=== PATIENT | male | born 1960 | race Hispanic/Latino ===

== ENCOUNTER 2016-06-28 09:16 | Day surgery (SDC) | payer MEDICAID ==
[~2016-06-28 09:16] MED LIST: FLAGYL 500 MG/100 ML 100 ML IV SCH
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
[2016-06-28 10:25] LABS: Basophils % (Auto) 0.4 % (0.0-1.8); Eosinophils % (Auto) 0.3 % (0.0-4.3); Hematocrit 42.1 % (35.5-45.6); Hemoglobin 13.5 gm/dl (11.8-15.2); Mean Corpuscular HGB Conc 32 % (32-34); Mean Corpuscular Hemoglobin 26 pg (28-32); Mean Corpuscular Volume 82 fl (84-94); Platelet Count 137 K/mm3 (140-440); Red Blood Count 5.11 M/mm3 (3.65-5.03); Red Cell Distribution Width 16.9 % (13.2-15.2); White Blood Count 19.4 K/mm3 (4.5-11.0)
--- NOTE | 2016-06-28 10:26 | Anesthesia Day of Surgery ---
Anesthesia Day of Surgery - Day of Surgery Patient Examined: Yes Patient H&P Reviewed: Yes Patient is NPO: Yes
[2016-06-28] MEDS ORDERED: DILAUDID IV ONE ×2 (10:28→12:10)
[2016-06-28 10:38] LABS: Anion Gap 21 mmol/L; BUN/Creatinine Ratio 16.36; Blood Urea Nitrogen 18 mg/dL (9-20); Calcium 8.7 mg/dL (8.4-10.2); Carbon Dioxide 22 mmol/L (22-30); Chloride 100.2 mmol/L (98-107); Glucose 130 mg/dL (75-100); Potassium 4.2 mmol/L (3.6-5.0); Sodium 139 mmol/L (137-145)
[2016-06-28] MEDS ORDERED: VERSED IV NR ×2 (11:00→14:00)
[2016-06-28] MEDS ORDERED: LACTATED RINGERS 1,000 ML IV SCH (11:00)
[2016-06-28] MEDS ORDERED: PEPCID PO NR (11:00)
[2016-06-28] MEDS ORDERED: DILAUDID ONE (14:04)
[2016-06-28] MEDS ORDERED: DIPRIVAN 10 MG/ML IV ONE (14:04)
[2016-06-28] MEDS ORDERED: XYLOCAINE MPF 2% ONE (14:09)
[2016-06-28] MEDS ORDERED: TORADOL ONE (15:13)
[2016-06-28] MEDS ORDERED: ZOFRAN ONE (15:13)
--- NOTE | 2016-06-28 15:14 | Short Stay Summary ---
Short Stay Documentation Date of service: 06/28/16 - History H&P: obtained from office - Allergies and Medications Current Medications: Allergies penicillin Allergy (Severe, Verified 03/03/15 14:06) Rash BEE STINGS Adverse Reaction (Severe, Uncoded 03/03/15 14:11) Swelling Home Medications Medication Instructions Recorded Confirmed Last Taken Type Aspirin [Aspirin BABY CHEW TAB] 81 mg PO QDAY 05/19/15 06/28/16 06/21/16 History Famotidine [Pepcid] 30 mg PO DAILY 05/19/15 06/23/16 06/27/16 History Fluticasone [Flonase] 1 spray NS QDAY 05/19/15 06/23/16 06/27/16 History Mirtazapine [Remeron] 15 mg PO QHS 05/19/15 06/23/16 06/27/16 History Oxycodone HCl/Acetaminophen 1 each PO Q6HR PRN 05/19/15 06/23/16 06/27/16 History [Percocet 2.5/325 mg] Pantoprazole [Protonix] 40 mg PO QDAY 05/19/15 06/23/16 06/27/16 History Polyethylene Glycol 3350 [Miralax 17 gm PO BID 05/19/15 06/23/16 06/27/16 History 3350] Sennosides [Senna Lax] 4 tab PO QHS 05/19/15 06/23/16 06/27/16 History Venlafaxine Xr [Effexor Xr] 75 mg PO QDAY 05/19/15 06/23/16 06/27/16 History Mirabegron [Myrbetriq] 50 mg PO QDAY 11/02/15 06/23/16 06/27/16 History Fesoterodine Fumarate [Toviaz] 8 mg PO QDAY 11/03/15 06/23/16 06/27/16 History Mag Hydrox/Al Hydrox/Simeth [Rulox 30 cc PO PRN PRN 12/17/15 06/23/16 04/11/16 21:00 History Suspension] Cetirizine HCl [ZyrTEC] 10 mg PO QHS 06/23/16 06/23/16 06/27/16 History Ferrous Sulfate [Feosol] 325 mg PO QDAY 12/06/23/16 06/27/16 History Flavoxate HCl [flavoxATE] 100 mg PO PRN PRN 06/23/16 06/23/16 Unknown History Linaclotide [Linzess] 145 mcg PO QDAY 06/23/16 06/23/16 06/27/16 History Solifenacin Succinate [Vesicare] 10 mg PO QDAY 06/23/16 06/23/16 06/27/16 History Active Medications Famotidine (Pepcid) 20 mg PO PREOP NR Stop: 06/28/16 23:00 Last Admin: 06/28/16 10:38 Dose: 20 mg Metronidazole (Flagyl 500 Mg/100 Ml) 100 mls @ 100 mls/hr IV PREOP BERT Stop: 06/28/16 23:59 Lactated Ringer's (Lactated Ringers) 1,000 mls @ 75 mls/hr IV DIRECT BERT Last Admin: 06/28/16 10:38 Dose: 75 mls/hr Midazolam HCl (Versed) 2 mg IV PREOP NR Stop: 06/28/16 23:59 Last Admin: 06/28/16 10:44 Dose: 2 mg Midazolam HCl (Versed) 1 mg IV PREOP NR Stop: 06/28/16 23:59 Last Admin: 06/28/16 13:58 Dose: 1 mg - Brief post op/procedure progress note Date of procedure: 06/28/16 Pre-op diagnosis: neurogenic bladder, urethral stricture Post-op diagnosis: same Procedure: spt exchange, cystogram, urethroscopy Anesthesia: GETA Surgeon: BE WEAVER Estimated blood loss: none Pathology: none Condition: stable - Hospital course Hospital course: jacobo williamson on chart - Disposition Condition at discharge: Stable
[2016-06-28 16:42] VITALS: BP 118/72
[2016-06-28] MEDS ORDERED: NORCO 5/325 PO ONE (16:44)
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
--- NOTE | 2016-06-28 17:28 | Post Anesthesia Evaluation ---
- Post Anesthesia Evaluation Patient Participated: Yes Airway Patent: Yes Stable Respiratory Function: Yes Nausea/Vomiting: No Temp > 96.8F: Yes Pain Manageable: Yes Adequeate Hydration: Yes Anesthesia Complications: No Block Receding Appropriately: Not Applicable Patient on Ventilator: No
--- NOTE | 2016-06-29 08:42 | Fluoroscopy Report ---
Static cystogram. History: Neurogenic bladder. Findings: The bladder appears contracted which is consistent with the clinical diagnosis. Exchange of a suprapubic catheter was performed with this procedure. No evidence of vesicoureteral reflux is seen on images obtained.
== END 2016-06-28 17:35 ==
LOC: OR 09:16
PROVIDERS: ATTEND Urology
DX: N31.2 Flaccid neuropathic bladder, not elsewhere classified (principal); N35.9 Urethral stricture, unspecified; F32.9 Major depressive disorder, single episode, unspecified; F41.9 Anxiety disorder, unspecified; K21.9 Gastro-esophageal reflux disease without esophagitis; B19.20 Unspecified viral hepatitis C without hepatic coma; G82.50 Quadriplegia, unspecified; S14.159S Other incomplete lesion at unspecified level of cervical spinal cord, sequela; V89.2XXS Person injured in unspecified motor-vehicle accident, traffic, sequela; S32.9XXA Fracture of unspecified parts of lumbosacral spine and pelvis, initial encounter for closed fracture; Z87.891 Personal history of nicotine dependence
CPT/HCPCS: 36415; 51102; 74430; 80048; 85025; C1769; J1170; J1885; J2250; J2405; J2704; J7120; Q9967

== ENCOUNTER 2016-08-09 10:39 | Day surgery (SDC) | payer MEDICAID ==
--- NOTE | 2016-08-09 11:57 | Anesthesia Day of Surgery ---
Anesthesia Day of Surgery - Day of Surgery Patient Examined: Yes Patient H&P Reviewed: Yes Patient is NPO: Yes
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
[2016-08-09] MEDS ORDERED: ZOFRAN IV PRN (11:58)
[2016-08-09] MEDS ORDERED: PEPCID PO NR (12:00)
[2016-08-09] MEDS ORDERED: NACL 0.9% 1000 ML 1,000 ML IV SCH (12:00)
[2016-08-09] MEDS ORDERED: FLAGYL 500 MG/100 ML 500 MG/100 ML BAG IV NR (12:00)
[2016-08-09] MEDS ORDERED: SUBLIMAZE IV SCH (13:00)
[2016-08-09] MEDS ORDERED: DIPRIVAN 10 MG/ML IV ONE (13:15)
[2016-08-09] MEDS ORDERED: SUBLIMAZE ONE (13:15)
[2016-08-09] MEDS ORDERED: XYLOCAINE MPF 2% ONE (14:52)
[2016-08-09] MEDS ORDERED: WATER FOR IRRIG STERILE IR ONE (14:52)
[2016-08-09] MEDS ORDERED: DECADRON ONE (14:52)
[2016-08-09] MEDS ORDERED: ZOFRAN ONE (14:52)
[2016-08-09] MEDS ORDERED: OMNIPAQUE 300 MG/50 ML (CATH LAB) IV ONE (14:58)
--- NOTE | 2016-08-09 15:07 | Short Stay Summary ---
Short Stay Documentation Date of service: 08/09/16 - History H&P: obtained from office - Allergies and Medications Current Medications: Allergies penicillin Allergy (Severe, Verified 03/03/15 14:06) Rash BEE STINGS Adverse Reaction (Severe, Uncoded 03/03/15 14:11) Swelling Home Medications Medication Instructions Recorded Confirmed Last Taken Type Aspirin [Aspirin BABY CHEW TAB] 81 mg PO QDAY 05/19/15 06/28/16 08/08/16 09:00 History Famotidine [Pepcid] 30 mg PO DAILY 05/19/15 08/09/16 08/08/16 09:00 History Fluticasone [Flonase] 1 spray NS QDAY 05/19/15 08/09/16 08/08/16 09:00 History Mirtazapine [Remeron] 15 mg PO QHS 05/19/15 08/09/16 08/08/16 19:00 History Oxycodone HCl/Acetaminophen 1 each PO Q6HR PRN 05/19/15 08/09/16 08/08/16 17:00 History [Percocet 2.5/325 mg] Pantoprazole [Protonix] 40 mg PO QDAY 05/19/15 08/09/16 08/08/16 09:00 History Polyethylene Glycol 3350 [Miralax 17 gm PO BID 05/19/15 08/09/16 08/08/16 17:00 History 3350] Sennosides [Senna Lax] 4 tab PO QHS 05/19/15 08/09/16 08/08/16 09:00 History Venlafaxine Xr [Effexor Xr] 75 mg PO QDAY 05/19/15 08/09/16 08/08/16 09:00 History Mirabegron [Myrbetriq] 50 mg PO QDAY 11/02/15 08/09/16 08/08/16 09:00 History Fesoterodine Fumarate [Toviaz] 8 mg PO QDAY 11/03/15 08/09/16 08/08/16 09:00 History Mag Hydrox/Al Hydrox/Simeth [Rulox 30 cc PO PRN PRN 12/17/15 08/09/16 04/11/16 21:00 History Suspension] Cetirizine HCl [ZyrTEC] 10 mg PO QHS 06/23/16 08/09/16 08/08/16 19:00 History Ferrous Sulfate [Feosol] 325 mg PO QDAY 06/23/16 08/09/16 08/08/16 09:00 History Flavoxate HCl [flavoxATE] 100 mg PO PRN PRN 06/23/16 08/09/16 Unknown History Linaclotide [Linzess] 145 mcg PO QDAY 06/23/16 08/09/16 08/08/16 09:00 History Solifenacin Succinate [Vesicare] 10 mg PO QDAY MDD 10 06/23/16 08/09/16 09:00 History 10 Active Medications Famotidine (Pepcid) 20 mg PO PREOP NR Stop: 08/09/16 23:01 Last Admin: 08/09/16 11:59 Dose: 20 mg Fentanyl (Sublimaze) 50 mcg IV ONCE BERT Stop: 08/09/16 23:00 Hydromorphone HCl (Dilaudid) 0.5 mg IV Q10MIN PRN PRN Reason: Pain , Severe (7-10) Stop: 08/09/16 23:00 Sodium Chloride (Nacl 0.9% 1000 Ml) 1,000 mls @ 75 mls/hr IV DIRECT BERT Last Admin: 08/09/16 11:58 Dose: 75 mls/hr Metronidazole (Flagyl 500 Mg/100 Ml) 500 mg in 100 mls @ 200 mls/hr IV PREOP NR PRN Reason: Protocol Stop: 08/09/16 23:01 Ondansetron HCl (Zofran) 4 mg IV ONCE PRN PRN Reason: Nausea And Vomiting Stop: 08/09/16 23:00 - Brief post op/procedure progress note Date of procedure: 08/09/16 Pre-op diagnosis: stricture, neurogenic bladder Procedure: cysto, spt exchange Anesthesia: GETA Surgeon: BE WEAVER Condition: stable - Hospital course Hospital course: krissro & teri on chart - Disposition Condition at discharge: Stable Disposition: DISCHARGED TO HOME OR SELFCARE Short Stay Discharge Plan Follow up with: PRIMARY CARE,MD [Primary Care Provider] - 7 Days
[2016-08-09] MEDS: DILAUDID IV PRN ×2 (15:25→15:35)
[2016-08-09 16:44] VITALS: BP 131/76
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
--- NOTE | 2016-08-10 08:58 | Fluoroscopy Report ---
Cystogram 2 fluoroscopic images. History: Neuromuscular dysfunction of bladder, urethra stricture. Findings: The bladder isn't adequate history with contrast through the catheter. In situ catheter is stable. No extravasation of contrast is seen. No reflux is noted in the ureters and no contrast is seen in the urethra. Impression: Findings as detailed above.
== END 2016-08-09 16:40 | disposition home or self-care (01) ==
LOC: OR 10:39
PROVIDERS: ATTEND Urology
DX: N31.2 Flaccid neuropathic bladder, not elsewhere classified (principal); N35.9 Urethral stricture, unspecified; D63.8 Anemia in other chronic diseases classified elsewhere; I10 Essential (primary) hypertension; F22 Delusional disorders; F01.50 Vascular dementia, unspecified severity, without behavioral disturbance, psychotic disturbance, mood disturbance, and anxiety; Z87.891 Personal history of nicotine dependence; Z86.73 Personal history of transient ischemic attack (TIA), and cerebral infarction without residual deficits; F41.9 Anxiety disorder, unspecified; F32.9 Major depressive disorder, single episode, unspecified; K21.9 Gastro-esophageal reflux disease without esophagitis; B19.20 Unspecified viral hepatitis C without hepatic coma
CPT/HCPCS: 51705; 74430; 75984; A4217; J1100; J1170; J2405; J2704; J3010; J7030; Q9967

== ENCOUNTER 2016-12-06 12:34 | Day surgery (SDC) | payer MEDICAID ==
[~2016-12-06 12:34] MED LIST changes: -FLAGYL 500 MG/100 ML 100 ML IV SCH; +FLAGYL 500 MG/100 ML 500 MG/100 ML BAG IV SCH; +NACL 0.9% 1000 ML 1,000 ML IV SCH; +PEPCID PO NR; +VERSED IV NR
[2016-12-06] MEDS ORDERED: DILAUDID IV PRN (14:17)
[2016-12-06] MEDS ORDERED: DILAUDID IV ONE (14:17)
[2016-12-06] MEDS ORDERED: ZOFRAN IV PRN (14:17)
--- NOTE | 2016-12-06 14:19 | Anesthesia Day of Surgery ---
Anesthesia Day of Surgery - Day of Surgery Patient Examined: Yes Patient H&P Reviewed: Yes Patient is NPO: Yes
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
[2016-12-06 14:42] LABS: Basophils % (Auto) 0.5 % (0.0-1.8); Eosinophils % (Auto) 2.8 % (0.0-4.3); Hematocrit 46.2 % (35.5-45.6); Hemoglobin 15.1 gm/dl (11.8-15.2); Mean Corpuscular HGB Conc 33 % (32-34); Mean Corpuscular Hemoglobin 29 pg (28-32); Mean Corpuscular Volume 90 fl (84-94); Red Blood Count 5.14 M/mm3 (3.65-5.03); Red Cell Distribution Width 14.3 % (13.2-15.2); White Blood Count 5.5 K/mm3 (4.5-11.0)
[2016-12-06 14:44] LABS: Platelet Count 93 K/mm3 (140-440)
[2016-12-06 14:53] LABS: Anion Gap 18 mmol/L; BUN/Creatinine Ratio 18.33; Blood Urea Nitrogen 11 mg/dL (9-20); Calcium 9.6 mg/dL (8.4-10.2); Carbon Dioxide 26 mmol/L (22-30); Chloride 98.1 mmol/L (98-107); Glucose 98 mg/dL (75-100); Potassium 4.2 mmol/L (3.6-5.0); Sodium 138 mmol/L (137-145)
[2016-12-06] MEDS ORDERED: PEPCID IV NR (15:00)
[2016-12-06] MEDS ORDERED: SUBLIMAZE ONE (16:52)
[2016-12-06] MEDS ORDERED: DIPRIVAN 10 MG/ML IV ONE (16:53)
[2016-12-06] MEDS ORDERED: OMNIPAQUE (300 MG) IR ONE (17:30)
--- NOTE | 2016-12-06 17:51 | Short Stay Summary ---
Short Stay Documentation Date of service: 12/06/16 - History H&P: obtained from office - Allergies and Medications Current Medications: Allergies penicillin Allergy (Severe, Verified 03/03/15 14:06) Rash BEE STINGS Adverse Reaction (Severe, Uncoded 03/03/15 14:11) Swelling Home Medications Medication Instructions Recorded Confirmed Last Taken Type Aspirin [Aspirin BABY CHEW TAB] 81 mg PO QDAY 05/19/15 11/30/16 12/05/16 History Famotidine [Pepcid] 30 mg PO DAILY 05/19/15 11/30/16 12/05/16 History Fluticasone [Flonase] 1 spray NS QDAY 05/19/15 11/30/16 12/05/16 History Mirtazapine [Remeron] 15 mg PO QHS 05/19/15 11/30/16 12/05/16 History Oxycodone HCl/Acetaminophen 1 each PO Q6HR PRN 05/19/15 11/30/16 12/05/16 History [Percocet 2.5/325 mg] Pantoprazole [Protonix] 40 mg PO QDAY 05/19/15 11/30/16 12/05/16 History Polyethylene Glycol 3350 [Miralax 17 gm PO BID 05/19/15 11/30/16 12/05/16 History 3350] Sennosides [Senna Lax] 4 tab PO QHS 05/19/15 11/30/16 12/05/16 History Venlafaxine Xr [Effexor Xr] 75 mg PO QDAY 05/19/15 11/30/16 12/05/16 History Mirabegron [Myrbetriq] 50 mg PO QDAY 11/02/15 11/30/16 12/05/16 History Fesoterodine Fumarate [Toviaz] 8 mg PO QDAY 11/03/15 11/30/16 12/05/16 History Mag Hydrox/Al Hydrox/Simeth [Rulox 30 cc PO PRN PRN 12/17/15 11/30/16 12/05/16 History Suspension] Cetirizine HCl [ZyrTEC] 10 mg PO QHS 06/23/16 11/30/16 12/05/16 History Ferrous Sulfate [Feosol] 325 mg PO QDAY 06/23/16 11/30/16 12/05/16 History Flavoxate HCl [flavoxATE] 100 mg PO PRN PRN 06/23/16 11/30/16 12/05/16 History Linaclotide [Linzess] 145 mcg PO QDAY 06/23/16 11/30/16 12/05/16 History Solifenacin Succinate [Vesicare] 10 mg PO QDAY MDD 10 06/23/16 11/30/16 History Active Medications Famotidine (Pepcid) 20 mg IV PREOP NR Stop: 12/06/16 23:59 Last Admin: 12/06/16 14:58 Dose: 20 mg Hydromorphone HCl (Dilaudid) 0.5 mg IV Q10MIN PRN PRN Reason: Pain , Severe (7-10) Stop: 12/09/16 14:18 Metronidazole (Flagyl 500 Mg/100 Ml) 500 mg in 100 mls @ 100 mls/hr IV PREOP BERT Sodium Chloride (Nacl 0.9% 1000 Ml) 1,000 mls @ 75 mls/hr IV DIRECT BERT Last Admin: 12/06/16 14:54 Dose: 75 mls/hr Midazolam HCl (Versed) 2 mg IV PREOP NR Stop: 12/06/16 23:59 Last Admin: 12/06/16 14:56 Dose: 2 mg - Brief post op/procedure progress note Date of procedure: 12/06/16 Pre-op diagnosis: retention, neurogenic bladder Post-op diagnosis: same Procedure: flexible endoscopy via sp site, sptube exchange, cystogram Anesthesia: GETA Surgeon: BE WEAVER Estimated blood loss: none Condition: stable - Hospital course Hospital course: macrobid & norco - Disposition Condition at discharge: Stable Disposition: DC-01 TO HOME OR SELFCARE Short Stay Discharge Plan Follow up with: PRIMARY CARE,MD [Primary Care Provider] - 7 Days
[2016-12-06] MEDS ORDERED: XYLOCAINE MPF 2% ONE (17:59)
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
[2016-12-06 21:46] VITALS: BP 134/76
--- NOTE | 2016-12-07 14:35 | Fluoroscopy Report ---
CYSTOGRAM, ONE VIEW History: Neurogenic bladder. Findings: 2 fluoroscopic images were obtained by urology during surgery. Chain Offbearer film is unremarkable. A second image was obtained following injection of a small amount of IV contrast into the bladder which demonstrates no discrete abnormality. A Lyons catheter is in place. Please correlate with the procedural report by Dr. Nam. Impression: Limited exam. No obvious bladder abnormality.
== END 2016-12-06 19:52 | disposition home or self-care (01) ==
LOC: OR 12:34
PROVIDERS: ATTEND Urology
DX: N31.2 Flaccid neuropathic bladder, not elsewhere classified (principal); F22 Delusional disorders; F01.50 Vascular dementia, unspecified severity, without behavioral disturbance, psychotic disturbance, mood disturbance, and anxiety; F41.9 Anxiety disorder, unspecified; F32.9 Major depressive disorder, single episode, unspecified; K21.9 Gastro-esophageal reflux disease without esophagitis; G47.33 Obstructive sleep apnea (adult) (pediatric); B19.20 Unspecified viral hepatitis C without hepatic coma; I10 Essential (primary) hypertension; D63.8 Anemia in other chronic diseases classified elsewhere; Z88.0 Allergy status to penicillin; Z91.030 Bee allergy status; Z79.899 Other long term (current) drug therapy; Z87.891 Personal history of nicotine dependence; Z86.73 Personal history of transient ischemic attack (TIA), and cerebral infarction without residual deficits
CPT/HCPCS: 36415; 51705; 74430; 80048; 85025; 87086; J1170; J2250; J2704; J3010; J7030; Q9967

== ENCOUNTER 2017-03-14 09:19 | Day surgery (SDC) | payer MEDICAID ==
[2017-03-14] MEDS ORDERED: MARCAINE-EPI/PF 0.5%-1:200,000 INFILTRATI ONE (09:24)
[2017-03-14] MEDS ORDERED: MARCAINE-EPI 0.5%-1:200,000 INFILTRATI ONE (09:30)
[2017-03-14] MEDS ORDERED: SUBLIMAZE IV ONE (09:30)
[2017-03-14] MEDS ORDERED: NEURONTIN PO NR (10:00)
[2017-03-14] MEDS ORDERED: VERSED IV NR ×2 (10:00→12:00)
--- NOTE | 2017-03-14 10:38 | Anesthesia Day of Surgery ---
Anesthesia Day of Surgery - Day of Surgery Patient Examined: Yes Patient H&P Reviewed: Yes Patient is NPO: Yes
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
[2017-03-14] MEDS ORDERED: NACL 0.9% 1000 ML 1,000 ML IV SCH (11:00)
[2017-03-14] MEDS ORDERED: PEPCID IV NR (11:00)
[2017-03-14 11:16] LABS: Basophils % (Auto) 0.8 % (0.0-1.8); Eosinophils % (Auto) 2.5 % (0.0-4.3); Hematocrit 45.9 % (35.5-45.6); Hemoglobin 15.5 gm/dl (11.8-15.2); Mean Corpuscular HGB Conc 34 % (32-34); Mean Corpuscular Hemoglobin 31 pg (28-32); Mean Corpuscular Volume 91 fl (84-94); Platelet Count 130 K/mm3 (140-440); Red Blood Count 5.03 M/mm3 (3.65-5.03); Red Cell Distribution Width 13.3 % (13.2-15.2); White Blood Count 5.3 K/mm3 (4.5-11.0)
[2017-03-14] MEDS ORDERED: DIPRIVAN 10 MG/ML IV ONE (11:32)
[2017-03-14] MEDS ORDERED: XYLOCAINE MPF 2% ONE (11:32)
[2017-03-14] MEDS ORDERED: SUBLIMAZE ONE (11:32)
[2017-03-14 11:35] LABS: Anion Gap 15 mmol/L; BUN/Creatinine Ratio 17.14; Blood Urea Nitrogen 12 mg/dL (9-20); Calcium 9.3 mg/dL (8.4-10.2); Carbon Dioxide 28 mmol/L (22-30); Chloride 102.2 mmol/L (98-107); Glucose 85 mg/dL (75-100); Potassium 4.1 mmol/L (3.6-5.0); Sodium 141 mmol/L (137-145)
[2017-03-14] MEDS ORDERED: ZOFRAN IV PRN (12:00)
[2017-03-14] MEDS ORDERED: LEVAQUIN 500MG/100ML 500 MG/100 ML BAG IV NR (12:00)
[2017-03-14 12:05] LABS: Bacteria,Urine 4+ /HPF (Negative); Bilirubin,Urine NEG (Negative); Blood,Urine SM (Negative); Ketones,Urine NEG (Negative); Leukocyte Esterase,Urine MOD (Negative); Nitrite,Urine NEG (Negative); Urobilinogen,Urine < 2.0 mg/dL (<2.0)
[2017-03-14] MEDS ORDERED: DILAUDID IV PRN (12:30)
[2017-03-14] MEDS ORDERED: TRIPLE ANTIBIOTIC TP ONE ×2 (12:52→13:42)
[2017-03-14] MEDS ORDERED: WATER FOR IRRIG STERILE IR ONE (13:27)
--- NOTE | 2017-03-14 13:48 | Short Stay Summary ---
Short Stay Documentation Date of service: 03/14/17 - History H&P: obtained from office - Allergies and Medications Current Medications: Allergies penicillin Allergy (Severe, Verified 03/03/15 14:06) Rash BEE STINGS Adverse Reaction (Severe, Uncoded 03/03/15 14:11) Swelling Home Medications Medication Instructions Recorded Confirmed Last Taken Type Aspirin [Aspirin BABY CHEW TAB] 81 mg PO QDAY 05/19/15 03/07/17 03/13/17 History Famotidine [Pepcid] 30 mg PO DAILY 05/19/15 03/07/17 03/13/17 History Fluticasone [Flonase] 1 spray NS QDAY 05/19/15 03/07/17 03/13/17 History Mirtazapine [Remeron] 15 mg PO QHS 05/19/15 03/07/17 03/13/17 History Oxycodone HCl/Acetaminophen 1 each PO Q6HR PRN 05/19/15 03/07/17 03/13/17 History [Percocet 2.5/325 mg] Pantoprazole [Protonix] 40 mg PO QDAY 05/19/15 03/07/17 03/13/17 History Polyethylene Glycol 3350 [Miralax 17 gm PO BID 05/19/15 03/07/17 03/13/17 History 3350] Sennosides [Senna Lax] 4 tab PO QHS 05/19/15 03/07/17 03/13/17 History Venlafaxine Xr [Effexor Xr] 75 mg PO QDAY 05/19/15 03/07/17 03/13/17 History Mirabegron [Myrbetriq] 50 mg PO QDAY 11/02/15 03/07/17 03/13/17 History Fesoterodine Fumarate [Toviaz] 8 mg PO QDAY 11/03/15 03/07/17 03/13/17 History Mag Hydrox/Al Hydrox/Simeth [Rulox 30 cc PO PRN PRN 12/17/15 03/07/17 03/13/17 History Suspension] Cetirizine HCl [ZyrTEC] 10 mg PO QHS 06/23/16 03/07/17 03/13/17 History Ferrous Sulfate [Feosol] 325 mg PO QDAY 06/23/16 03/07/17 03/13/17 History Flavoxate HCl [flavoxATE] 100 mg PO PRN PRN 06/23/16 03/07/17 03/13/17 History Linaclotide [Linzess] 145 mcg PO QDAY 06/23/16 03/07/17 03/13/17 History Solifenacin Succinate [Vesicare] 10 mg PO QDAY 06/23/16 03/07/17 03/13/17 History Active Medications Famotidine (Pepcid) 20 mg IV PREOP NR Stop: 03/14/17 17:00 Last Admin: 03/14/17 12:19 Dose: 20 mg Hydromorphone HCl (Dilaudid) 0.5 mg IV Q10MIN PRN PRN Reason: Pain , Severe (7-10) Stop: 03/14/17 17:00 Sodium Chloride (Nacl 0.9% 1000 Ml) 1,000 mls @ 75 mls/hr IV DIRECT BERT Last Admin: 03/14/17 12:16 Dose: 75 mls/hr Levofloxacin/Dextrose (Levaquin 500mg/100ml) 500 mg in 100 mls @ 100 mls/hr IV PREOP NR PRN Reason: Protocol Stop: 03/14/17 17:00 Last Admin: 03/14/17 12:23 Dose: 100 mls/hr Midazolam HCl (Versed) 2 mg IV PREOP NR Stop: 03/14/17 17:00 Last Admin: 03/14/17 12:17 Dose: 1 mg Ondansetron HCl (Zofran) 4 mg IV ONCE PRN PRN Reason: Nausea And Vomiting Stop: 03/14/17 17:00 - Brief post op/procedure progress note Date of procedure: 03/14/17 Pre-op diagnosis: neurogenic bladder Post-op diagnosis: same Procedure: cysto, cystogram, spt change Anesthesia: GETA Surgeon: BE WEAVER Estimated blood loss: none Pathology: none Condition: stable - Hospital course Hospital course: marco & teri on chart - Disposition Condition at discharge: Stable Disposition: DC-01 TO HOME OR SELFCARE Short Stay Discharge Plan Follow up with: PRIMARY CARE,MD [Primary Care Provider] - 7 Days
[2017-03-14] MEDS ORDERED: NORCO 7.5/325 PO PRN (14:54)
[2017-03-14] MEDS ORDERED: NORCO 5/325 PO PRN (15:19)
[2017-03-14 18:16] VITALS: BP 125/78
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
--- NOTE | 2017-03-15 09:00 | Fluoroscopy Report ---
Static cystogram in the OR. History: Neuromuscular dysfunction the bladder. Findings: A single image of contrast within the urinary bladder demonstrates a small size of the bladder unchanged from the previous study. There is left mild vesicoureteral reflux. There are no other specific findings.
== END 2017-03-14 15:30 | disposition home or self-care (01) ==
LOC: OR 09:19
PROVIDERS: ATTEND Urology
DX: N31.2 Flaccid neuropathic bladder, not elsewhere classified (principal); N35.9 Urethral stricture, unspecified; F41.9 Anxiety disorder, unspecified; F32.9 Major depressive disorder, single episode, unspecified; K21.9 Gastro-esophageal reflux disease without esophagitis; Z88.0 Allergy status to penicillin; Z91.030 Bee allergy status; Z79.82 Long term (current) use of aspirin; Z79.899 Other long term (current) drug therapy; Z87.891 Personal history of nicotine dependence; Z86.73 Personal history of transient ischemic attack (TIA), and cerebral infarction without residual deficits; Z86.19 Personal history of other infectious and parasitic diseases
CPT/HCPCS: 36415; 51705; 74430; 80048; 81001; 85025; A4217; C1769; J1170; J1956; J2250; J2704; J3010; J7030; Q9967; A6250

== ENCOUNTER 2017-07-02 06:19 | Day surgery (SDC) | payer MEDICAID ==
[~2017-07-02 06:19] MED LIST changes: -NACL 0.9% 1000 ML 1,000 ML IV SCH; -PEPCID PO NR; -VERSED IV NR
[2017-07-02] MEDS ORDERED: NACL BACTERIOSTATIC INFILTRATI ONE (07:21)
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
--- NOTE | 2017-07-02 07:57 | Anesthesia Day of Surgery ---
Anesthesia Day of Surgery - Day of Surgery Patient Examined: Yes Patient H&P Reviewed: Yes Patient is NPO: Yes
[2017-07-02] MEDS ORDERED: NACL 0.9% 1000 ML 1,000 ML IV SCH (08:00)
[2017-07-02] MEDS ORDERED: PEPCID IV NR (08:00)
[2017-07-02] MEDS ORDERED: VERSED IV NR (08:00)
[2017-07-02] MEDS ORDERED: DECADRON ONE (08:30)
[2017-07-02] MEDS ORDERED: ZOFRAN ONE (08:30)
[2017-07-02] MEDS ORDERED: WATER FOR IRRIG STERILE IR ONE ×2 (09:09→09:10)
[2017-07-02] MEDS ORDERED: TRIPLE ANTIBIOTIC TP ONE (09:10)
[2017-07-02] MEDS ORDERED: SUBLIMAZE ONE (09:50)
[2017-07-02] MEDS ORDERED: DIPRIVAN 10 MG/ML IV ONE (09:50)
[2017-07-02] MEDS ORDERED: ROBINUL ONE (09:51)
[2017-07-02] MEDS ORDERED: XYLOCAINE MPF 2% ONE (09:51)
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
--- NOTE | 2017-07-02 11:12 | Fluoroscopy Report ---
Operative cystogram: Neurogenic bladder with suprapubic catheter exchange. Contrast is injected into the bladder from the suprapubic catheter. The left side of the bladder demonstrates a flattened contour. The bladder is not well distended. There is contrast filling the prostatic portion of the urethra. Following drainage a small amount of amount of contrast residual is identified external to the bladder on the left.
[2017-07-02] MEDS ORDERED: NORCO 5/325 PO PRN (11:25)
--- NOTE | 2017-07-02 13:09 | Post Anesthesia Evaluation ---
- Post Anesthesia Evaluation Patient Participated: Yes Airway Patent: Yes Stable Respiratory Function: Yes Nausea/Vomiting: No Temp > 96.8F: Yes Pain Manageable: Yes Adequeate Hydration: Yes Anesthesia Complications: No
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
[2017-07-02 16:24] VITALS: BP 120/82
== END 2017-07-02 13:08 | disposition home or self-care (01) ==
LOC: OR 06:19
PROVIDERS: ATTEND Urology
DX: N31.9 Neuromuscular dysfunction of bladder, unspecified (principal); F32.9 Major depressive disorder, single episode, unspecified; F41.9 Anxiety disorder, unspecified; Z98.890 Other specified postprocedural states; Z87.891 Personal history of nicotine dependence; I63.9 Cerebral infarction, unspecified; Z88.0 Allergy status to penicillin; Z88.8 Allergy status to other drugs, medicaments and biological substances
CPT/HCPCS: 51705; 74430; A4217; J1100; J2250; J2405; J2704; J3010; J7030; Q9967; A6250

== ENCOUNTER 2017-08-13 07:46 | Day surgery (SDC) | payer MEDICAID ==
[~2017-08-13 07:46] MED LIST changes: +FLAGYL 500 MG/100 ML 500 MG/100 ML BAG IV NR; -FLAGYL 500 MG/100 ML 500 MG/100 ML BAG IV SCH
[2017-08-13] MEDS ORDERED: DILAUDID IV PRN (11:05)
[2017-08-13] MEDS ORDERED: ZOFRAN IV PRN (11:05)
--- NOTE | 2017-08-13 11:14 | Anesthesia Day of Surgery ---
Anesthesia Day of Surgery - Day of Surgery Patient Examined: Yes Patient H&P Reviewed: Yes Patient is NPO: Yes
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
[2017-08-13] MEDS ORDERED: VERSED IV NR (12:00)
[2017-08-13] MEDS ORDERED: PEPCID IV NR (12:00)
[2017-08-13] MEDS ORDERED: NACL 0.9% 1000 ML 1,000 ML IV SCH (12:00)
[2017-08-13] MEDS ORDERED: SUBLIMAZE ONE (12:09)
[2017-08-13] MEDS ORDERED: DIPRIVAN 10 MG/ML IV ONE (12:10)
[2017-08-13] MEDS ORDERED: WATER FOR IRRIG STERILE IR ONE (12:50)
[2017-08-13] MEDS ORDERED: ZOFRAN ONE (13:02)
[2017-08-13] MEDS ORDERED: XYLOCAINE MPF 2% ONE (13:03)
--- NOTE | 2017-08-13 13:05 | Short Stay Summary ---
Short Stay Documentation Date of service: 08/06/17 - History H&P: obtained from office - Allergies and Medications Current Medications: Allergies penicillin Allergy (Severe, Verified 03/03/15 14:06) Rash BEE STINGS Adverse Reaction (Severe, Uncoded 03/03/15 14:11) Swelling Home Medications Medication Instructions Recorded Confirmed Last Taken Type Aspirin [Aspirin BABY CHEW TAB] 81 mg PO QDAY 05/19/15 08/13/17 08/12/17 09:00 History Famotidine [Pepcid] 30 mg PO DAILY 05/19/15 08/13/17 08/12/17 09:00 History Mirtazapine [Remeron] 15 mg PO QHS 05/19/15 08/13/17 08/12/17 19:00 History Oxycodone HCl/Acetaminophen 1 each PO Q6HR PRN 05/19/15 08/13/17 08/13/17 04:00 History [Percocet 2.5/325 mg] Pantoprazole [Protonix] 40 mg PO QDAY 05/19/15 08/13/17 08/12/17 09:00 History Polyethylene Glycol 3350 [Miralax 17 gm PO BID 05/19/15 08/13/17 08/12/17 17:00 History 3350] Sennosides [Senna Lax] 4 tab PO QHS 05/19/15 08/13/17 08/12/17 17:00 History Venlafaxine Xr [Effexor Xr] 75 mg PO QDAY 05/19/15 08/13/17 08/12/17 09:00 History Fesoterodine Fumarate [Toviaz] 8 mg PO QDAY 11/03/15 08/13/17 08/12/17 09:00 History Mag Hydrox/Aluminum Hyd/Simeth 30 cc PO PRN PRN 12/17/15 07/30/17 05/01/17 History [Rulox Suspension] Cetirizine HCl [ZyrTEC] 10 mg PO QHS 06/23/16 08/13/17 08/12/17 21:00 History Ferrous Sulfate [Feosol] 325 mg PO QDAY 06/23/16 08/13/17 08/12/17 09:00 History Flavoxate HCl [flavoxATE] 100 mg PO PRN PRN 1207/30/17 03/13/17 History Linaclotide [Linzess] 145 mcg PO QDAY 06/23/16 08/13/17 08/12/17 09:00 History Solifenacin Succinate [Vesicare] 10 mg PO QDAY 06/23/16 08/13/17 08/12/17 09:00 History Melatonin [Melatin] 3 mg PO QHS 07/02/17 08/13/17 08/12/17 19:00 History Nitrofurantoin Monohyd/M-Cryst 100 mg PO BID 07/02/17 08/13/17 08/12/17 17:00 History [Macrobid 100 mg Capsule] Active Medications Famotidine (Pepcid) 20 mg IV PREOP NR Stop: 08/13/17 23:00 Last Admin: 08/13/17 11:33 Dose: 20 mg Hydromorphone HCl (Dilaudid) 0.5 mg IV Q10MIN PRN PRN Reason: Pain , Severe (7-10) Metronidazole (Flagyl 500 Mg/100 Ml) 500 mg in 100 mls @ 100 mls/hr IV PREOP NR Stop: 08/13/17 21:00 Sodium Chloride (Nacl 0.9% 1000 Ml) 1,000 mls @ 75 mls/hr IV DIRECT BERT Last Admin: 08/13/17 11:33 Dose: 75 mls/hr Midazolam HCl (Versed) 2 mg IV PREOP NR Stop: 08/13/17 23:59 Last Admin: 08/13/17 11:36 Dose: 2 mg Ondansetron HCl (Zofran) 4 mg IV ONCE PRN PRN Reason: Nausea And Vomiting - Brief post op/procedure progress note Date of procedure: 08/13/17 Pre-op diagnosis: stricture, neurogenic baldder Post-op diagnosis: same Procedure: urethroscopy, spt change (20f), cystogram Anesthesia: GETA Estimated blood loss: none Pathology: none Condition: stable - Hospital course Hospital course: tanner on chart - Disposition Condition at discharge: Stable Disposition: DC-01 TO HOME OR SELFCARE Short Stay Discharge Plan Follow up with: MAGDY TANG MD [Primary Care Provider] - 7 Days
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
[2017-08-13] MEDS ORDERED: NORCO 5/325 PO PRN (14:04)
[2017-08-13] MEDS ORDERED: NORCO 5/325 ONE (14:04)
[2017-08-13 15:35] LABS: Hepatitis A Antibody IgM Non-Reactive (NonReactive); Hepatitis B Core IgM Non-Reactive (NonReactive); Hepatitis B Surface Antigen Non-Reactive (Negative); Hepatitis C Virus Antibody Reactive (NonReactive)
--- NOTE | 2017-08-13 15:38 | XRay Report ---
SUPINE KUB: History: Neuropathic bladder. The abdominal gas pattern is unremarkable. No masses or organomegaly is identified and there is no gross evidence of free air or fluid. No significant soft tissue calcifications are noted. IMPRESSION: Unremarkable abdomen.
[2017-08-13 16:18] VITALS: BP 134/90
== END 2017-08-13 15:10 | disposition home or self-care (01) ==
LOC: OR 07:46
PROVIDERS: ATTEND Urology
DX: N31.8 Other neuromuscular dysfunction of bladder (principal); N35.9 Urethral stricture, unspecified; G82.50 Quadriplegia, unspecified; S32.89XA Fracture of other parts of pelvis, initial encounter for closed fracture; N31.2 Flaccid neuropathic bladder, not elsewhere classified; K21.9 Gastro-esophageal reflux disease without esophagitis; M19.90 Unspecified osteoarthritis, unspecified site; F41.9 Anxiety disorder, unspecified; F32.9 Major depressive disorder, single episode, unspecified; I10 Essential (primary) hypertension; B19.20 Unspecified viral hepatitis C without hepatic coma; Z88.6 Allergy status to analgesic agent; Z91.030 Bee allergy status; Z79.82 Long term (current) use of aspirin; Z79.899 Other long term (current) drug therapy; Z86.73 Personal history of transient ischemic attack (TIA), and cerebral infarction without residual deficits; E78.00 Pure hypercholesterolemia, unspecified; Z87.891 Personal history of nicotine dependence; Z98.890 Other specified postprocedural states
CPT/HCPCS: 36415; 51705; 74018; 80074; 87806; A4217; J1170; J2250; J2405; J2704; J3010; J7030

== ENCOUNTER 2017-11-21 10:12 | Day surgery (SDC) | payer MEDICAID ==
[~2017-11-21 10:12] MED LIST changes: -FLAGYL 500 MG/100 ML 500 MG/100 ML BAG IV NR; +FLAGYL 500 MG/100 ML 500 MG/100 ML BAG IV SCH
[2017-11-21] MEDS ORDERED: PEPCID IV SCH (12:10)
[2017-11-21] MEDS ORDERED: VERSED IV ONE (12:10)
[2017-11-21] MEDS ORDERED: LACTATED RINGERS 1,000 ML IV SCH (12:11)
[2017-11-21] MEDS: DILAUDID IV SCH ×2 (12:28→12:39)
[2017-11-21] MEDS ORDERED: ZOFRAN IV PRN (12:33)
[2017-11-21] MEDS ORDERED: DILAUDID IV PRN (12:33)
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
--- NOTE | 2017-11-21 12:34 | Anesthesia Day of Surgery ---
Anesthesia Day of Surgery - Day of Surgery Patient Examined: Yes Patient H&P Reviewed: Yes Patient is NPO: Yes
[2017-11-21] MEDS ORDERED: DIPRIVAN 10 MG/ML IV ONE (13:08)
[2017-11-21] MEDS ORDERED: ZOFRAN ONE (13:50)
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
[2017-11-21] MEDS ORDERED: XYLOCAINE MPF 2% ONE (14:00)
[2017-11-21] MEDS ORDERED: NORCO 5/325 PO PRN (14:44)
[2017-11-21 15:08] VITALS: BP 136/90
--- NOTE | 2017-11-22 08:29 | Fluoroscopy Report ---
FLUOROSCOPY CYSTOGRAM STATIC-OR, ONE VIEW History: Suprapubic catheter exchange. Findings: Fluoroscopy was provided by radiology during suprapubic catheter exchanged by urology. 3 fluoroscopic images were captured which demonstrate suprapubic catheter exchange. The bladder appears low volume after the injection of water soluble contrast agent. There is mild reflux into the distal left ureter but no obvious filling defect or wall abnormality. Correlate with the procedural report as needed. Impression: Suprapubic catheter exchange by urology. Mild left vesicoureteral reflux is identified.
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
== END 2017-11-21 15:19 | disposition home or self-care (01) ==
LOC: OR 10:12
PROVIDERS: ATTEND Urology
DX: N35.9 Urethral stricture, unspecified (principal); N31.9 Neuromuscular dysfunction of bladder, unspecified; G82.50 Quadriplegia, unspecified; B19.20 Unspecified viral hepatitis C without hepatic coma; I69.954 Hemiplegia and hemiparesis following unspecified cerebrovascular disease affecting left non-dominant side; K21.9 Gastro-esophageal reflux disease without esophagitis; F41.9 Anxiety disorder, unspecified; F32.9 Major depressive disorder, single episode, unspecified; Z87.891 Personal history of nicotine dependence; Z88.0 Allergy status to penicillin; Z91.030 Bee allergy status; Z79.82 Long term (current) use of aspirin
CPT/HCPCS: 51705; 74430; J1170; J2250; J2405; J2704; J7120; Q9967

== ENCOUNTER 2018-01-16 12:39 | Day surgery (SDC) | payer MEDICAID ==
[2018-01-16] MEDS ORDERED: NACL BACTERIOSTATIC INFILTRATI ONE (13:11)
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
--- NOTE | 2018-01-16 13:14 | Anesthesia Day of Surgery ---
Anesthesia Day of Surgery - Day of Surgery Patient Examined: Yes Patient H&P Reviewed: Yes Patient is NPO: Yes
[2018-01-16] MEDS ORDERED: VERSED IV NR (14:00)
[2018-01-16] MEDS ORDERED: NACL 0.9% 1000 ML 1,000 ML IV SCH (14:00)
[2018-01-16] MEDS ORDERED: PEPCID IV NR (14:00)
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
[2018-01-16 14:51] LABS: Basophils % (Auto) 0.6 % (0.0-1.8); Eosinophils # (Auto) 0.3 K/mm3 (0.0-0.4); Eosinophils % (Auto) 5.7 % (0.0-4.3); Hematocrit 45.2 % (35.5-45.6); Hemoglobin 15.3 gm/dl (11.8-15.2); Lymphocytes # (Auto) 1.5 K/mm3 (1.2-5.4); Mean Corpuscular HGB Conc 34 % (32-34); Mean Corpuscular Hemoglobin 31 pg (28-32); Mean Corpuscular Volume 91 fl (84-94); Monocytes # (Auto) 0.3 K/mm3 (0.0-0.8); Monocytes % (Auto) 4.7 % (0.0-7.3); Platelet Count 163 K/mm3 (140-440); Red Blood Count 4.96 M/mm3 (3.65-5.03); Red Cell Distribution Width 13.5 % (13.2-15.2)
[2018-01-16] MEDS ORDERED: ZOFRAN IV PRN (14:53)
[2018-01-16] MEDS ORDERED: DILAUDID IV PRN (14:53)
[2018-01-16] MEDS ORDERED: DIPRIVAN 10 MG/ML IV ONE (15:01)
[2018-01-16] MEDS ORDERED: XYLOCAINE MPF 2% ONE (15:01)
[2018-01-16] MEDS ORDERED: WATER FOR IRRIG STERILE IR ONE ×2 (15:45→15:46)
[2018-01-16] MEDS ORDERED: NORCO 5/325 PO PRN (16:32)
[2018-01-16] MEDS ORDERED: NORCO 5/325 ONE (16:35)
[2018-01-16 17:40] VITALS: BP 126/92
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
== END 2018-01-16 17:45 | disposition home or self-care (01) ==
LOC: OR 12:39
PROVIDERS: ATTEND Urology
DX: N35.014 Post-traumatic urethral stricture, male, unspecified (principal); N31.9 Neuromuscular dysfunction of bladder, unspecified; K21.9 Gastro-esophageal reflux disease without esophagitis; M19.90 Unspecified osteoarthritis, unspecified site; F41.9 Anxiety disorder, unspecified; F32.9 Major depressive disorder, single episode, unspecified; B19.20 Unspecified viral hepatitis C without hepatic coma; I10 Essential (primary) hypertension; I69.854 Hemiplegia and hemiparesis following other cerebrovascular disease affecting left non-dominant side; Z79.82 Long term (current) use of aspirin; Z88.0 Allergy status to penicillin; Z91.030 Bee allergy status; Z87.891 Personal history of nicotine dependence; Z87.81 Personal history of (healed) traumatic fracture
CPT/HCPCS: 36415; 51710; 85025; A4217; J1170; J2250; J2704; J7030

== ENCOUNTER 2018-07-03 10:18 | Day surgery (SDC) | payer MEDICAID ==
[~2018-07-03 10:18] MED LIST changes: +FLAGYL 500 MG/100 ML 500 MG/100 ML BAG IV NR; -FLAGYL 500 MG/100 ML 500 MG/100 ML BAG IV SCH
[2018-07-03 11:12] LABS: Basophils # (Auto) 0.1 K/mm3 (0.0-0.1); Basophils % (Auto) 1.4 % (0.0-1.8); Eosinophils # (Auto) 0.2 K/mm3 (0.0-0.4); Eosinophils % (Auto) 5.1 % (0.0-4.3); Hematocrit 42.1 % (35.5-45.6); Hemoglobin 14.3 gm/dl (11.8-15.2); Lymphocytes # (Auto) 1.9 K/mm3 (1.2-5.4); Lymphocytes % (Auto) 42.2 % (13.4-35.0); Mean Corpuscular HGB Conc 34 % (32-34); Mean Corpuscular Volume 92 fl (84-94); Monocytes # (Auto) 0.3 K/mm3 (0.0-0.8); Monocytes % (Auto) 5.8 % (0.0-7.3); Platelet Count 181 K/mm3 (140-440); Red Blood Count 4.57 M/mm3 (3.65-5.03)
[2018-07-03] MEDS ORDERED: SUBLIMAZE ONE ×2 (11:15→12:42)
[2018-07-03] MEDS ORDERED: LACTATED RINGERS 1,000 ML ONE (11:16)
[2018-07-03 11:53] LABS: BUN/Creatinine Ratio 20; Blood Urea Nitrogen 12 mg/dL (9-20); Calcium 8.7 mg/dL (8.4-10.2); Hemolysis Index 19
[2018-07-03] MEDS ORDERED: DIPRIVAN 10 MG/ML IV ONE (12:39)
[2018-07-03] MEDS ORDERED: XYLOCAINE MPF 2% ONE (12:39)
[2018-07-03] MEDS ORDERED: ZOFRAN ONE (12:39)
[2018-07-03] MEDS ORDERED: DECADRON ONE (12:39)
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
[2018-07-03] MEDS ORDERED: WATER FOR IRRIG STERILE IR ONE (13:35)
[2018-07-03] MEDS ORDERED: DILAUDID ONE (14:13)
[2018-07-03] MEDS ORDERED: DILAUDID IV PRN (14:14)
[2018-07-03 14:28] VITALS: BP 150/93
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
[2018-07-03] MEDS ORDERED: NORCO 5/325 ONE (14:51)
[2018-07-03] MEDS ORDERED: NORCO 5/325 PO PRN (14:51)
--- NOTE | 2018-07-03 17:20 | Anesthesia Day of Surgery ---
Anesthesia Day of Surgery - Day of Surgery Patient Examined: Yes Patient H&P Reviewed: Yes Patient is NPO: Yes
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
--- NOTE | 2018-07-04 08:07 | Fluoroscopy Report ---
FLUOROSCOPY CYSTOGRAM STATIC FLUOROSCOPY RETROGRADE URETHROGRAM History: Neurogenic bladder. Findings: Fluoroscopy was provided by radiology during cystogram and retrograde urethrogram by the urologist. 5 fluoroscopic images were saved. The cystogram images demonstrate a suprapubic catheter in position. Only a small amount of contrast agent is present in the bladder which demonstrates no gross abnormality. Suprapubic catheter exchange was performed per the operative note. 2 fluoroscopic images of the urethrogram also demonstrate only a small amount of contrast in the urethra. The prostatic urethra is not opacified. Please correlate with the procedural report. IMPRESSION: Successful cystogram and retrograde urethrogram. Please correlate with the procedural report as needed.
== END 2018-07-03 10:19 | disposition home or self-care (01) ==
LOC: OR 10:18
PROVIDERS: ATTEND Urology
DX: N31.9 Neuromuscular dysfunction of bladder, unspecified (principal); N35.919 Unspecified urethral stricture, male, unspecified site; M19.90 Unspecified osteoarthritis, unspecified site; F32.9 Major depressive disorder, single episode, unspecified; F41.9 Anxiety disorder, unspecified; E78.00 Pure hypercholesterolemia, unspecified; K21.9 Gastro-esophageal reflux disease without esophagitis; Z88.0 Allergy status to penicillin; Z79.899 Other long term (current) drug therapy; Z98.890 Other specified postprocedural states; Z79.82 Long term (current) use of aspirin; Z87.891 Personal history of nicotine dependence; Z86.73 Personal history of transient ischemic attack (TIA), and cerebral infarction without residual deficits; Z88.8 Allergy status to other drugs, medicaments and biological substances
CPT/HCPCS: 36415; 52000; 74430; 74450; 80048; 85025; A4217; J1100; J1170; J2405; J2704; J3010; J7120; Q9967

== ENCOUNTER 2018-08-19 06:24 | Day surgery (SDC) | payer MEDICAID ==
[2018-08-19] MEDS ORDERED: FLAGYL 500 MG/100 ML 500 MG/100 ML BAG IV NR (07:00)
[2018-08-19 07:42] LABS: Eosinophils # (Auto) 0.2 K/mm3 (0.0-0.4); Eosinophils % (Auto) 5.2 % (0.0-4.3); Hematocrit 44.8 % (35.5-45.6); Hemoglobin 15.3 gm/dl (11.8-15.2); Lymphocytes # (Auto) 1.4 K/mm3 (1.2-5.4); Lymphocytes % (Auto) 29.5 % (13.4-35.0); Mean Corpuscular HGB Conc 34 % (32-34); Mean Corpuscular Volume 92 fl (84-94); Monocytes # (Auto) 0.2 K/mm3 (0.0-0.8); Monocytes % (Auto) 4.3 % (0.0-7.3); Platelet Count 161 K/mm3 (140-440); Red Cell Distribution Width 13.5 % (13.2-15.2)
[2018-08-19 07:58] LABS: BUN/Creatinine Ratio 14; Blood Urea Nitrogen 10 mg/dL (9-20); Calcium 9.6 mg/dL (8.4-10.2); Hemolysis Index 13
[2018-08-19] MEDS ORDERED: LACTATED RINGERS 1,000 ML IV SCH (08:08)
[2018-08-19] MEDS ORDERED: SUBLIMAZE IV ONE (09:00)
--- NOTE | 2018-08-19 09:26 | Anesthesia Day of Surgery ---
Anesthesia Day of Surgery - Day of Surgery Patient Examined: Yes Patient H&P Reviewed: Yes Patient is NPO: Yes (midnight) Beta Blockers: No James's Test: N/A
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
[2018-08-19] MEDS ORDERED: SUBLIMAZE ONE (09:31)
[2018-08-19] MEDS ORDERED: XYLOCAINE MPF 2% ONE (09:31)
[2018-08-19] MEDS ORDERED: DIPRIVAN 10 MG/ML IV ONE (09:32)
[2018-08-19] MEDS ORDERED: SILVER NITRATE TP ONE ×2 (10:26→10:27)
[2018-08-19] MEDS ORDERED: WATER FOR IRRIG STERILE IR ONE ×3 (10:26→10:51)
[2018-08-19] MEDS ORDERED: ZOFRAN ONE (10:39)
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
[2018-08-19] MEDS ORDERED: NORCO 5/325 PO PRN (11:14)
[2018-08-19] MEDS ORDERED: NORCO 5/325 ONE (11:15)
[2018-08-19] MEDS ORDERED: DILAUDID IV PRN (11:29)
[2018-08-19] MEDS: SUBLIMAZE IV PRN ×2 (11:38→11:46)
[2018-08-19 20:06] VITALS: BP 138/82
--- NOTE | 2018-08-20 09:27 | Fluoroscopy Report ---
FLUOROSCOPY CYSTOGRAM STATIC FLUOROSCOPY RETROGRADE URETHROGRAM History: Neurogenic bladder. Findings: Fluoroscopy was provided by radiology during cystogram and retrograde urethrogram by the urologist. 5 fluoroscopic images were saved. Images of the bladder demonstrate a small amount of contrast agent within the bladder. There is mild reflux into the distal left ureter. No obvious bladder mass or filling defect. Single image of the retrograde urethrogram is severely limited. No gross abnormality. Please correlate with the procedural report by Dr. Nam.
== END 2018-08-19 06:25 | disposition home or self-care (01) ==
LOC: OR 06:24
PROVIDERS: ATTEND Urology
DX: N35.919 Unspecified urethral stricture, male, unspecified site (principal); E78.00 Pure hypercholesterolemia, unspecified; K21.9 Gastro-esophageal reflux disease without esophagitis; M19.90 Unspecified osteoarthritis, unspecified site; F32.9 Major depressive disorder, single episode, unspecified; Z88.0 Allergy status to penicillin; Z91.030 Bee allergy status; Z79.82 Long term (current) use of aspirin; Z79.899 Other long term (current) drug therapy; Z87.442 Personal history of urinary calculi; Z87.440 Personal history of urinary (tract) infections; Z87.891 Personal history of nicotine dependence; Z86.73 Personal history of transient ischemic attack (TIA), and cerebral infarction without residual deficits; Z86.2 Personal history of diseases of the blood and blood-forming organs and certain disorders involving the immune mechanism
CPT/HCPCS: 36415; 51705; 74430; 74450; 80048; 85025; A4217; J2405; J2704; J3010; J7120; Q9967